=== PATIENT | female | born 1945 | race Two or more races ===

== ENCOUNTER 2020-02-01 12:12 | Outpatient (CLI) | payer OTHER | END 2020-02-01 12:22 | disposition home or self-care (01) | LOC: RAD 12:12 | DX: N20.0 Calculus of kidney (principal) ==

== ENCOUNTER 2020-02-06 14:56 | Outpatient (CLI) | payer OTHER | END 2020-02-06 15:03 | disposition home or self-care (01) | LOC: SONOGRAMA 14:56 | DX: R31.0 Gross hematuria (principal); M54.5 Low back pain ==

== ENCOUNTER 2020-03-22 10:15 | Outpatient (CLI) | payer OTHER | END 2020-03-22 10:24 | disposition home or self-care (01) | LOC: MAMO-SONO 10:15 | DX: Z12.31 Encounter for screening mammogram for malignant neoplasm of breast (principal); N61.1 Abscess of the breast and nipple ==

== ENCOUNTER 2020-03-25 09:39 | Outpatient (CLI) | payer OTHER | END 2020-03-25 09:44 | disposition home or self-care (01) | LOC: NUCLEAR 09:39 | DX: M81.0 Age-related osteoporosis without current pathological fracture (principal) ==

== ENCOUNTER 2021-01-24 08:44 | Day surgery (SDC) | payer OTHER | END 2021-01-24 14:50 | disposition home or self-care (01) | LOC: AMB-ENDOS 08:44 | PROVIDERS: ATTEND Colon & Rectal Surgery | DX: K62.89 Other specified diseases of anus and rectum (principal); K64.2 Third degree hemorrhoids; Z20.822 Contact with and (suspected) exposure to COVID-19; Z12.11 Encounter for screening for malignant neoplasm of colon ==